=== PATIENT | female | born 1980 | race Caucasian/White ===

== ENCOUNTER 2017-02-28 23:42 | Emergency (ER) | payer SELFPAY ==
[2017-03-01 00:08] LABS: BASOPHILS % 1.2 (0.0-1.5); EOSINOPHILS % 2.5 % (0.0-6.8); MEAN CORPUSCULAR HEMOGLOBIN 31.6 pg (28.0-34.0); MEAN CORPUSCULAR VOLUME 93.6 fl (80.0-100.0); MONOCYTES % 4.5 % (0.0-11.0); NEUTROPHILS # 6.3 # k/uL (1.4-7.7)
[2017-03-01 00:21] LABS: eGFR (African) > 60; eGFR (Non-African) > 60
[2017-03-01] MEDS ORDERED: KETOROLAC TROMETHAMINE 30 MG/1ML VIAL ONE (00:39)
[2017-03-01] MEDS ORDERED: LORazepam 1 MG TABLET PO ONE (00:40)
[2017-03-01] MEDS: LORazepam 1 MG TABLET PO ONE (00:45)
--- NOTE | 2017-03-01 00:45 | ED Physician Documentation ---
Chest Pain - HISTORIAN Historian: patient - HPI Stated Complaint: Rib and Chest Pain when Yawning Chief Complaint: Chest Pain Onset: days ago (7) Timing: other (intermittent, worse today) Last known Well Date: 02/22/17 Last Known Well Time: 08:00 Context: rest, other (yawning) Severity: moderate Quality: sharp, stabbing Chest Pain Radiation: no radiation, jaw ("hurts when I yawn") Chest Pain Signs/Symptoms: denies: nausea, vomiting, diaphoresis, cool extremities, dizziness, dyspnea, tachypnea, tachycardia, hypotension, palpitations, weakness, other Relieved By: nothing - ROS CONST: none MS/LYMPH: none GI/: none EYES/ENT: none SKIN/ENDO: none NEURO/PSYCH: anxiety ( incarcerated) - PAST HX [facility] risk factors: no pertinent history DVT/PE Risk Factors: none TAD/AAA risk factors: none Neuro deficit: none GI disease: none Lung disease: none Surgeries/Procedures: none Allergies/Adverse Reactions: Allergies Allergy/AdvReac Type Severity Reaction Status Date / Time No Known Allergies Allergy Verified 03/01/14 04:13 Home Medications: Ambulatory Orders Medication Instructions Recorded NK [NK] 03/01/14 - SOCIAL HX Smoking History: cigarettes - FAMILY HX Family HX: denies: none - VITAL SIGNS Vital Signs: Vital Signs Temp Pulse Resp BP Pulse Ox 66 16 128/72 97 02/28/17 23:54 02/28/17 23:45 02/28/17 23:45 02/28/17 23:54 - REVIEWED ASSESSMENTS Nursing Assessment Reviewed: Yes Vitals Reviewed: Yes Progress - Progress Progress: Discussed situational anxiety, was incarcerated this week. Patient reports history of anxiety, history of anti-anxiety medications. Now has no health insurance, no PCP. Free clinic list provided. ED Results Lab/Radiology - Lab Results Lab Results: Lab Results 02/28/17 02/28/17 02/28/17 23:54 23:54 23:54 WBC 11.50 K/ul K/ul (4.00-12.00) RBC 4.33 M/ul M/ul (3.90-5.20) Hgb 13.7 g/dL g/dL (12.0-16.0) Hct 40.6 % % (34.5-46.5) MCV 93.6 fl fl (80.0-100.0) MCH 31.6 pg pg (28.0-34.0) MCHC 33.8 g/dL g/dL (30.0-36.0) RDW 13.3 % % (11.3-14.3) Plt Count 236 K/mm3 K/mm3 (130-400) Neut % (Auto) 54.8 % % (39.0-79.0) Lymph % (Auto) 35.7 % % (16.0-50.0) [place] % (Auto) 4.5 % % (0.0-11.0) Eos % (Auto) 2.5 % % (0.0-6.8) Baso % (Auto) 1.2 (0.0-1.5) Neut # (Auto) 6.3 # k/uL # k/uL (1.4-7.7) Lymph # (Auto) 4.1 # k/uL H # k/uL (0.6-4.0) [place] # (Auto) 0.5 # k/uL # k/uL (0.0-0.9) Eos # (Auto) 0.3 # k/uL # k/uL (0.0-0.6) Baso # (Auto) 0.1 # k/uL # k/uL (0.0-0.5) Reactive Lymphs % 1.4 % % (0.0-5.0) Reactive Lymphs # 0.2 # k/uL # k/uL (0.0-0.8) Sodium 139 mmol/L mmol/L (136-145) Potassium 3.6 mmol/L mmol/L (3.5-5.0) Chloride 107 mmol/L mmol/L (98-110) Carbon Dioxide 28 mmol/L mmol/L (20-32) BUN 11 mg/dL mg/dL (10-26) Creatinine 0.6 mg/dL mg/dL (0.4-1.5) Estimated Creat Clear 289 Est GFR ( Amer) > 60 (60 - ) Est GFR (Non-Af Amer) > 60 (60 - ) Glucose 105 mg/dL H mg/dL (70-99) Calcium 9.7 mg/dL mg/dL (8.5-10.5) Total Bilirubin 0.5 mg/dL mg/dL (0.2-1.2) AST 52 U/L H U/L (0-41) ALT 97 U/L H U/L (0-45) Alkaline Phosphatase 79 U/L U/L (46-116) Creatine Kinase 81 U/L U/L (0-225) Troponin I < 0.03 ng/mL L ng/mL (0.03-0.06) Total Protein 8.0 g/dL g/dL (6.0-8.5) Albumin 4.6 g/dL g/dL (3.0-5.5) - Orders Orders: ED Orders Category Date Time Status Continuous EKG monitoring Q30M Care 02/28/17 23:54 Active Continuous Pulse Oximetry Q30M Care 02/28/17 23:54 Active CBC/PLATELET/DIFF Routine Lab 02/28/17 23:54 Completed CMP Routine Lab 02/28/17 23:54 Completed CREATINE KINASE Routine Lab 02/28/17 23:54 Completed TROPONIN I (cTnI) Stat Lab 02/28/17 23:54 Completed Ketorolac Tromethamine [Toradol] Med 03/01/17 00:39 Once 30 mg IVP NOW ONE LORazepam [Ativan] Med 03/01/17 00:39 Once 1 mg PO NOW ONE EKG WITH COMPARISON Stat Ther 02/28/17 23:54 Ordered Chest Pain Physical Exam - EXAM General Appearance: anxious EENT: eye inspection normal, JULIETA Respiratory: no resp. distress, chest non-tender, nml breath sounds CVS: reg. rate & rhythm, no murmur, no gallop, no friction rub, pulses full, pulses equal Abdomen: soft, no organomegaly, normal bowel sounds, no abdominal bruit, no distension, other (morbid obesity) Skin: normal color, warm/dry, NR, INT, DR Extremities: non-tender, normal range of motion, no evidence of injury, no edema , J, MAKE UP GIRL Neuro: oriented X3, CN's nml as tested, motor nml, sensation nml, mood/affect nml Discharge Clincal Impression: Anxiety, Non-cardiac chest pain Referrals: Boris Jack MD [Primary Care Provider] - 2 Days Additional Instructions: Establish new PCP Benadryl 12-25mg as needed at bedtime for insomnia. Home Medications: Ambulatory Orders NK [NK] 03/01/14 Condition: Stable Disposition: HOME, SELF-CARE Decision to Admit: NO Decision Time: 00:40
[2017-03-01] MEDS: KETOROLAC TROMETHAMINE 30 MG/1ML VIAL IVP ONE (00:46)
[2017-03-01 00:54] VITALS: BP 120/52
== END 2017-03-01 00:52 | disposition home or self-care (01) ==
LOC: ED 23:42
DX: F41.9 Anxiety disorder, unspecified (principal); R07.89 Other chest pain
CPT/HCPCS: 80053; 82550; 84484; 85025; 93005; J1885; 96374; 99283; S1016

== ENCOUNTER 2017-03-20 20:29 | Emergency (ER) | payer SELFPAY ==
[2017-03-20] MEDS ORDERED: AMOXICILLIN 500 MG CAPSULE PO ONE (20:45)
[2017-03-20] MEDS ORDERED: traMADol HCL 50 MG TABLET ONE (20:45)
[2017-03-20] MEDS: AMOXICILLIN 500 MG CAPSULE PO ONE (20:47)
[2017-03-20] MEDS: traMADol HCL 50 MG TABLET PO ONE (20:47)
--- NOTE | 2017-03-20 20:53 | ED Physician Documentation ---
Sore Throat/Dental Pain - HISTORIAN Historian: patient - HPI Stated Complaint: dental pain Chief Complaint: Dental Pain Additional Information: Dental vickey nx 4 days. Ibuprofen and tylenol today. - ROS CONST: no problems - PAST HX Past History: none Other History: other (anxiety) Allergies/Adverse Reactions: Allergies Allergy/AdvReac Type Severity Reaction Status Date / Time No Known Allergies Allergy Verified 03/20/17 20:38 Home Medications: Ambulatory Orders Medication Instructions Recorded NK [NK] 03/01/14 - SOCIAL HX Smoking History: non-smoker - FAMILY HX Family History: No - VITAL SIGNS Vital Signs: Vital Signs Temp Pulse Resp BP Pulse Ox 100.6 F H 87 19 154/98 98 03/20/17 20:40 03/20/17 20:40 03/20/17 20:40 03/20/17 20:40 03/20/17 20:40 - REVIEWED ASSESSMENTS Nursing Assessment Reviewed: Yes Vitals Reviewed: Yes ED Results Lab/Radiology - Orders Orders: ED Orders Category Date Time Status Amoxicillin [Amoxil] Med 03/20/17 20:45 Discontinued 500 mg PO .STK-MED ONE Amoxicillin [Amoxil] Med 03/20/17 20:43 Once 500 mg PO NOW ONE traMADol HCL [Ultram] Med 03/20/17 20:45 Discontinued 50 mg .ROUTE .STK-MED ONE traMADol HCL [Ultram] Med 03/20/17 20:43 Once 50 mg PO NOW ONE Dental Pain Physical Exam - EXAM General Appearance: no acute distress, alert Head/Neck: head nml inspection (except R mandibular swelling) Eyes: eyes nml inspection Mouth/Throat: lips nml, voice nml, no drooling, other (#31/32, with 30% visible tooth absent) Ear/Nose: nml inspection Respiratory: no resp. distress Extremities: nml ROM (gait) Skin: warm/dry Neuro/Psych: anxiety Discharge Clincal Impression: Pain due to dental caries Referrals: Boris Jack MD [Primary Care Provider] - 2 Days Home Medications: Ambulatory Orders NK [NK] 03/01/14 Condition: Good Disposition: 01 HOME, SELF-CARE Decision to Admit: NO Decision Time: 20:49
[2017-03-20 20:58] VITALS: BP 148/84
== END 2017-03-20 20:47 | disposition home or self-care (01) ==
LOC: ED 20:29
DX: K02.9 Dental caries, unspecified (principal)

== ENCOUNTER 2018-06-15 19:09 | Emergency (ER) | payer SELFPAY ==
[2018-06-15 19:24] VITALS: BP 162/90
[2018-06-15] MEDS ORDERED: DOXYCYCLINE MONOHYDRATE 100 MG CAPSULE PO ONE (19:27)
--- NOTE | 2018-06-15 19:35 | ED Physician Documentation ---
General Adult - HISTORIAN Historian: patient - HPI Stated Complaint: Chest/head congestion Chief Complaint: Cough/ Upper Respiratory Additional Information: Intro self as [employer]LECT[employer] ME[employer]. Pt presents to the ED via POV with sig other c/o productive cough x 2 weeks that has progressively worsened. pt is a smoker. pt reports mild rib pain 2/10 occasional that is worse with palpation and coughing. pt reports diaphoresis at work and occasional chills. pt denies other symptoms/complaints Onset: days ago (2 weeks ) Timing: still present, worse Severity: moderate - ROS CONST: sweating. denies: fever, recent illness, weakness EYES/ENT: none CVS/RESP: chest pain, cough (productive). denies: shortness of breath GI/: none. denies: abdominal pain, vomiting, nausea, diarrhea MS/SKIN/LYMPH: none NEURO/PSYCH: denies: headache, fainting, dizziness, tingling, numbness - PAST HX Past History: none Surgeries/Procedures: none Allergies/Adverse Reactions: Allergies Allergy/AdvReac Type Severity Reaction Status Date / Time No Known Allergies Allergy Verified 06/15/18 19:24 Home Medications: Ambulatory Orders Medication Instructions Recorded NK 03/01/14 - SOCIAL HX Smoking History: less than 1 pack/day - FAMILY HX Family History: Yes (mother [place], DM, HTN, ) - VITAL SIGNS Vital Signs: Vital Signs Temp Pulse Resp BP Pulse Ox 97.5 F L 79 18 162/90 98 06/15/18 19:10 06/15/18 19:10 06/15/18 19:10 06/15/18 19:10 06/15/18 19:10 - REVIEWED ASSESSMENTS Nursing Assessment Reviewed: Yes Vitals Reviewed: Yes Progress - EKG/XRAY/CT EKG: NSR (Rate 70. no ectopy. normal intervals/axis/interval. interp by me. ), no ST T wave changes ED Results Lab/Radiology - Orders Orders: ED Orders Category Date Time Status Doxycycline Monohydrate [Vibramycin] Med 06/15/18 19:27 Once 100 mg PO NOW ONE EKG WITH COMPARISON Stat Ther 06/15/18 Ordered General Adult Physical Exam - PHYSICAL EXAM GENERAL APPEARANCE: no distress EENT: eye inspection normal, pharynx normal, no signs of dehydration, TM's nml. No: pharyngeal erythema NECK: normal inspection, supple. No: lymphadenopathy RESPIRATORY: no resp distress (cough with deep inspiration), breath sounds normal. No: wheezes, rales, rhonchi CVS: reg rate & rhythm, heart sounds normal, equal pulses, no murmur, no gallop ABDOMEN: soft, normal bowel sounds, no distension, non-tender BACK: normal inspection SKIN: warm/dry EXTREMITIES: non-tender, normal range of motion, no evidence of injury, no edema NEURO: oriented X3, motor nml, sensation nml, mood/affect nml, cognition normal Discharge Clincal Impression: Bronchitis Referrals: Primary Doctor,No [Primary Care Provider] - 2 Days Additional Instructions: Doxycycline 100 mg Twice a day for 10 days. Prednisone 5 mg taper pack- take once daily as directed on package. Increase fluids. May use tylenol 650 mg every 6 hours for pain/fever and ibuprofen 600 mg every 6 hours. -CONTINUE ALL HOME MEDICATIONS WELL ANY NEW PRESCRIPTIONS YOU RECEIVE TODAY FOLLOW UP WITH YOUR PRIMARY CARE PROVIDER SUNDAY OR BEFORE IF NOT IMPROVING OR RETURN TO ER IF WORSE OR NOT IMPROVING EXPECTED MONITOR AND REPORT WORSENING CONDITION: CHEST PAIN, SHORTNESS OF BREATH, UNCONTROLLABLE FEVER, DIZZINESS, CHANGE IN MENTAL STATUS OR ANY CONCERN. -UNDERSTAND THAT THIS IS AN EMERGENCY EVALUATION FOR YOUR COMPLAINT TODAY AND BY NATURE IS LIMITED AND NOT A SUBSTITUTE FOR ONGOING MEDICAL CARE. I HAVE EXPLAINED THE TEST RESULTS AND TREATMENT PLAN- THERE MAY BE A NEED FOR ADDITIO NAL TESTING TO FULLY DETERMINE THE EXTENT OF YOUR ILLNESS/INJURY/OR CONCERN SO YOU SHOULD CONTACT AND OR ESTABLISH WITH A PRIMARY CARE PROVIDER (OR REFERRAL DOCTOR IF APPLICABLE) FOR AN APPOINTMENT SOON POSSIBLE Condition: Good Disposition: 01 HOME, SELF-CARE Decision to Admit: NO Date of Decison to Admit: 06/15/18 Decision Time: 19:40
== END 2018-06-15 19:50 | disposition home or self-care (01) ==
LOC: ED 19:09
DX: J40 Bronchitis, not specified as acute or chronic (principal)
CPT/HCPCS: 99283

== ENCOUNTER 2018-10-15 05:08 | Emergency (ER) | payer SELFPAY ==
--- NOTE | 2018-10-15 05:31 | ED Physician Documentation ---
General Adult - HISTORIAN Historian: patient - HPI Chief Complaint: Chest Pain Additional Information: 37-year-old white female who stated she is had some chronic chest pain for a number of years. Patient been seen in the emergency room on several occasions for exacerbation of her chest pain and workup has been normal. Patient has not seen any other provider for further evaluation and treatment. Patient believes that most of the time or chest pain is related to anxiety. However tonight will she was lying down she developed some mid chest pressure feeling with some radiation into her right shoulder area (06/19). Patient denies any precipitating factor that she is aware. Patient stated the pain had eased down quite a bit at this time. Patient denies anything that makes the pain any worse or better that she is aware. Patient has been mildly diaphoretic with it. Patient states she does have a lot of indigestion problems. Patient is under a lot of stress and is not anticipated is going to be improved and anytime soon. Patient is smoking approximately one half pack a day. Patient does have a family history of coronary artery disease with mother having some "heart problems" at age 57. Patient is not sure with your cholesterol level is. Onset: minutes (60) Timing: still present, better (01/17) Modifying Factors: relaxing helps sometimes Context: laying down Quality: pressure feeling to right and mid chest area Last known Well Code/Unknown Code: Known - ROS CONST: other (anxiety) CVS/RESP: chest pain, shortness of breath, cough (mild smoker's) GI/: other (indigestion). denies: abdominal pain, vomiting, nausea, diarrhea, black stools MS/SKIN/LYMPH: denies: calf pain, leg swelling - PAST HX Past History: other (anxiety). denies: asthma, hypertension Other History: denies: diabetes Type 2 Surgeries/Procedures: BTL Immunizations: referred to PCP Allergies/Adverse Reactions: Allergies Allergy/AdvReac Type Severity Reaction Status Date / Time No Known Allergies Allergy Verified 10/15/18 05:45 Home Medications: Ambulatory Orders Medication Instructions Recorded NK 03/01/14 - SOCIAL HX Smoking History: less than 1 pack/day (12 ppd) Alcohol Use: none Drug Use: none - FAMILY HX Family History: Yes (mother-CAD) - VITAL SIGNS Vital Signs: Vital Signs Temp Pulse Resp BP Pulse Ox 162/90 06/15/18 19:53 - REVIEWED ASSESSMENTS Nursing Assessment Reviewed: Yes Vitals Reviewed: Yes Progress - Progress Progress: 60:34 Patient states that the pain has not improved - will try some tordal. Awaiting CXR report. - Additional EKG/XRAY/Consults EKG #2: NSR, nonspecific ST T wave chg ED Results Lab/Radiology - Radiology Radiology Impressions: PA AND LATERAL CHEST HISTORY: Chest pain COMPARISON: None PA and Lateral Chest dated October 15, 2018 demonstrates a normal cardiomediastinal silhouette. Pulmonary vascularity is normal. Lungs are clear. IMPRESSION: NO ACTIVE DISEASE. General Adult Physical Exam - PHYSICAL EXAM GENERAL APPEARANCE: mild distress EENT: ENT inspection normal, pharynx normal, no signs of dehydration NECK: normal inspection, thyroid normal, supple RESPIRATORY: no resp distress, breath sounds normal. No: chest non-tender (chest tenderness to palpation over costomanubrial boarder bilat), wheezes, rales, rhonchi CVS: reg rate & rhythm, heart sounds normal, equal pulses, no murmur, no gallop ABDOMEN: soft (obeses), no organomegaly, normal bowel sounds, no distension, tenderness (epigastric area), McBurney's point tenderne BACK: normal inspection, no CVA tenderness SKIN: warm/dry, normal color EXTREMITIES: no edema NEURO: oriented X3, CN's nml as tested, motor nml, sensation nml. No: mood/affect nml (anxious/nervous) Discharge Clincal Impression: Non-cardiac chest pain, Anxiety Referrals: Primary Doctor,No [Primary Care Provider] - 2 Days Additional Instructions: Try alternating between a warm and cool compress to the right chest wall and shoulder. Watch for anything that brings the pain on or makes it better or worse. Follow-up with a primary care provider about your elevated liver tests. Condition: Stable Disposition: 01 HOME, SELF-CARE Decision to Admit: NO Date of Decison to Admit: 10/15/18 Decision Time: 06:55
[2018-10-15] MEDS ORDERED: ASPIRIN 81 MG CHEW TAB PO ONE (05:46)
[2018-10-15] MEDS ORDERED: MAG HYDROX/ALUMINUM HYD/SIMETH 30 ML, Lidocaine 2%Visc 15ml 20 MG, PHENOBARB-HYOSCYAM-A... PO ONE ×6 (05:49→06:05)
[2018-10-15] MEDS ORDERED: LIDOCAINE HCL 2% VISC. ORAL 300MG/15ML UDC ONE (05:59)
[2018-10-15] MEDS ORDERED: MAGNESIUM, ALUMINUM HYDROXIDE 30 ML UDC PO ONE (05:59)
[2018-10-15] MEDS ORDERED: KETOROLAC TROMETHAMINE 30 MG/1ML VIAL IVP ONE (06:32)
--- NOTE | 2018-10-15 06:47 | Diagnostic Imaging Report ---
[facility] [address] [facility].[address] [id number] Report Submission Date: Oct 15, 2018 6:39:37 AM PATTERN STAMPER Patient Study Name: YVONNE MOLINA Date: Oct 15, 2018 6:09:03 AM PATTERN STAMPER Modality Type: DX Gender: F Description: CHEST 2VIEW : 84 Institution: [facility] Physician: RC PAGE PA AND LATERAL CHEST HISTORY: Chest pain COMPARISON: None PA and Lateral Chest dated October 15, 2018 demonstrates a normal cardiomediastinal silhouette. Pulmonary vascularity is normal. Lungs are clear. IMPRESSION: NO ACTIVE DISEASE. Electronically signed on Oct 15, 2018 6:39:37 AM PATTERN STAMPER by: Naomi VARGAS
[2018-10-15 07:19] VITALS: BP 124/70
[2018-10-15 07:35] LABS: MEAN CORPUSCULAR HEMOGLOBIN 31.3 pg (28.0-34.0)
[2018-10-15 07:36] LABS: BASOPHILS % 0.7 (0.0-1.5); MONOCYTES % 4.4 % (0.0-11.0); NEUTROPHILS # 8.2 # k/uL (1.4-7.7)
[2018-10-15 07:37] LABS: eGFR (Non-African) > 60
== END 2018-10-15 07:15 | disposition home or self-care (01) ==
LOC: ED 05:08
DX: R07.89 Other chest pain (principal); F41.9 Anxiety disorder, unspecified
CPT/HCPCS: 71046; 80053; 82550; 83880; 84484; 85025; 93005; 96374; 99284; 99285; A9270; J1885; S1016

== ENCOUNTER 2019-07-04 19:17 | Emergency (ER) | payer OTHER ==
--- NOTE | 2019-07-04 19:39 | ED Physician Documentation ---
Headache - HISTORIAN Historian: patient - HPI Stated Complaint: Right sided pain to face/neck/shoulder/adventist Chief Complaint: Headache Onset: days ago (3), other (sinus pain for almost 2 months ) New Gradual Onset: No Exposure To: none Severity: moderate Quality: similar to previous, pain, other (numbness and tingling ) Associated Symptoms: chills, sweating, sensitivity to light, tingling. denies: problems with vision, nausea, vomiting, weakness Preceding Symptoms: denies: visual disturbance Exacerbated By: position Further Comments: yes (She states sinus pain and headahces with drainage started about 2-3 months ago. She states over the last few days she has had increasing headaches - she notes she has migraines and this feels like it was similar last night the worst pain and numbness on right side of her face although today it is improved. No fever but she has had chills. She has been taking OTC sinus meds and reports this is helping some. No weakness in her arms. Denies any facial droop. Denies any head injury.) - ROS NEURO/PSYCH: confusion EYES/ENT: sore throat, sinus pain, drainage CVS/RESP: cough. denies: chest pain, shortness of breath GI/: denies: abdominal pain MS/SKIN/LYMPH: denies: muscle aches, back pain, rash - PAST HX Medical History: allergies, migraines Immunizations: UTD Allergies/Adverse Reactions: Allergies Allergy/AdvReac Type Severity Reaction Status Date / Time No Known Allergies Allergy Verified 10/15/18 05:45 Home Medications: Ambulatory Orders Medication Instructions Recorded Naproxen [Naprosyn] 375 mg PO BID PRN #30 tablet 10/15/18 - SOCIAL HX Smoking History: cigarettes Alcohol Use: none Drug Use: none - Family HX Family History: none - VITAL SIGNS Vital Signs: Vital Signs Temp Pulse Resp BP Pulse Ox 98.9 F 78 16 106/71 99 07/04/19 19:18 07/04/19 20:18 07/04/19 20:18 07/04/19 20:18 07/04/19 20:18 - REVIEWED ASSESSMENTS Nursing Assessment Reviewed: Yes Vitals Reviewed: Yes ED Results Lab/Radiology - Orders Orders: ED Orders Category Date Time Status CT BRAIN W/O CONTRAST Stat Exams 07/04/[address] MAXILLOFACIAL W/O DYE Stat Exams 07/04/19 Taken URINE HCG Stat Lab 07/04/19 Ordered Amoxicillin/Potassium Clav [AUGMENTIN 875MG/125 mg Med 07/04/19 21:09 Once Tablet] 1 each PO NOW ONE Headache Physical Exam - EXAM General Appearance: no acute distress, alert EENT: eyes nml inspection, PERRL, pain over sinuses, purulent nasal discharge, pharynx nml, other Respiratory: no resp distress, chest non-tender CVS: reg. rate & rhythm, heart sounds nml Abdomen: non-tender Skin: color nml - NEURO/PSYCH Higher Functions: alert, oriented x3, nml speech, mood/affect nml Cranial: nml as tested Cerebellar: nml as tested Sensorimotor: motor nml Discharge Clincal Impression: Sinusitis Qualifiers: Sinusitis location: ethmoidal Chronicity: acute Recurrence: not specified as recurrent Qualified Code(s): J01.20 - Acute ethmoidal sinusitis, unspecified Referrals: Primary Doctor,No [Primary Care Provider] - 2 Days Comments: 1. Continue your OTC meds as directed as needed for symptom management 2. Augmentin 875/125mg take 1 by mouth twice daily x 10 days 3. Increase fluids 4. Follow up with PCP in 2-4 days 5. Return to ER for any increased concerns Condition: Stable Disposition: 01 HOME, SELF-CARE Decision to Admit: NO Date of Decison to Admit: 07/04/19 Decision Time: 21:19
--- NOTE | 2019-07-04 21:05 | Diagnostic Imaging Report ---
PATIENT MR#: [id number] PATIENT PATIENT NAME: YVONNE MOLINA DATE OF : 1980 REFERRING PHYSICIAN: Jessa Osborn EXAM DATE: 07/04/2019 ACCESSION NUMBER: [id number] EXAM DESCRIPTION: CT BRAIN W/O CONTRAST Examination: CT head without contrast History: Headache Comparison exam: None available Technique: Noncontrast head CT protocol. Findings: Ventricles and sulci are appropriate for patient age. Cerebrocerebellar parenchyma demonstr ates normal attenuation. No evidence for parenchymal hemorrhage. No evidence for mass or mass effect. No midline shift. No extra axial fluid collections. Partial visualization of the paranasal sinuses, mastoid air cells, orbits, s kull and scalp without gross irregularity. Impression: No acute parenchymal process. No hemorrhage. Read by: Dr. Murali Campbell Transcribed by: Transcribed Date: Electronically signed by: Dr. Murali Campbell Date signed: 07/07/2019 3:34:40 PM
[2019-07-04] MEDS ORDERED: AMOXICILLIN/POT 875/125 1 EACH PO ONE (21:09)
[2019-07-04 23:31] VITALS: BP 109/74
== END 2019-07-04 21:25 | disposition home or self-care (01) ==
LOC: ED 19:17
DX: J01.20 Acute ethmoidal sinusitis, unspecified (principal); F17.210 Nicotine dependence, cigarettes, uncomplicated
CPT/HCPCS: 70450; 70486; 81025; 99283; S1016